=== PATIENT | male | born 1935 | race Caucasian/White ===

== ENCOUNTER 2022-01-03 07:56 | Day surgery (SDC) | payer MEDICARE, OTHER ==
[~2022-01-03] VITALS: Ht 167.6 cm; Wt 72.0 kg
[2022-01-03 08:12] VITALS: BP 140/95
[2022-01-03] MEDS ORDERED: LISI40TA13 PO (08:33)
[2022-01-03] MEDS ORDERED: LEVO50TA8 PO (08:33)
[2022-01-03] MEDS ORDERED: DIAZ5TAB PO (08:33)
[2022-01-03] MEDS ORDERED: albumin 25% 100mL bottle x 1 IV PRN (08:45)
--- NOTE | 2022-01-03 09:30 | NUR ---
Ultrasound showed no ascitic fluid to drain. Procedure cancelled. Patient sent with all belongings.
== END 2022-01-03 09:30 | disposition home or self-care (01) ==
LOC: SSTAY O 07:56
PROVIDERS: ATTEND Radiology Vascular & Interventional Radiology
DX: R14.0 Abdominal distension (gaseous) (principal); R18.8 Other ascites; I10 Essential (primary) hypertension; J44.9 Chronic obstructive pulmonary disease, unspecified; Z98.890 Other specified postprocedural states; Z85.46 Personal history of malignant neoplasm of prostate; Z79.899 Other long term (current) drug therapy
CPT/HCPCS: 76705; A4615; A6258; A6449; C1729